=== PATIENT | female | born 1995 | race Caucasian/White ===

== ENCOUNTER 2025-01-06 00:59 | Emergency (ER) | payer SELFPAY ==
[~2025-01-06] VITALS: Ht 157.5 cm; Wt 59.0 kg
[2025-01-06] MEDS: TDAP [DIPH/PERTUSSIS/TET] 0.5 ML VIAL IM ONE (01:33)
[2025-01-06 01:35] VITALS: BP 116/72; TEMP 98.7; O2SAT 98
== END 2025-01-06 01:35 | disposition home or self-care (01) ==
LOC: ER 01:04
DX: S91.312A Laceration without foreign body, left foot, initial encounter (principal); Z88.1 Allergy status to other antibiotic agents; W26.8XXA Contact with other sharp object(s), not elsewhere classified, initial encounter; Y93.89 Activity, other specified; Y92.89 Other specified places as the place of occurrence of the external cause; Y99.8 Other external cause status
CPT/HCPCS: 90715